=== PATIENT | male | born 1985 | race Caucasian/White ===

== ENCOUNTER 2023-11-26 19:17 | Emergency (ER) | payer SELFPAY ==
[~2023-11-26] VITALS: Ht 185.4 cm; Wt 104.3 kg
[2023-11-26] MEDS ORDERED: CEFTRIAXONE /D5W 50ML IVPB **ER PYXIS IV ONE (20:01)
[2023-11-26 20:03] LABS: BASOPHILS # (AUTO) 0.1 K/UL (0.0-0.2); BASOPHILS % (AUTO) 0.5 % (0.0-2.0); EOSINOPHILS % (AUTO) 0.3 % (0.0-7.0); HEMATOCRIT 47.7 % (36.7-47.1); HEMOGLOBIN 16.7 g/dL (12.5-16.3); LYMPHOCYTES # (AUTO) 1.6 K/uL (0.8-4.8); LYMPHOCYTES % (AUTO) 10.8 % (20.5-51.5); MEAN CORPUSCULAR HEMOGLOBIN 31.1 uug (23.8-33.4); MEAN CORPUSCULAR HGB CONC 35 g/dL (32.5-36.3); MONOCYTES # (AUTO) 1.4 K/uL (0.1-1.30); MONOCYTES % (AUTO) 9.6 % (0.0-11.0); NEUTROPHILS # (AUTO) 11.6 K/uL (1.8-8.9); NEUTROPHILS % (AUTO) 78.8 % (38.5-71.5); PLATELET COUNT (AUTO) 309 K/uL (152-348); RED BLOOD CELL COUNT(AUTO) 5.36 MIL/uL (4.06-5.63); RED CELL DISTRIBUTION WIDTH 13.3 % (12.1-16.2); WHITE BLOOD COUNT (AUTO) 14.7 K/uL (3.6-10.2)
[2023-11-26] MEDS ORDERED: DEXAMETHASONE SOD PHOSPHATE 10 MG INJ ONE (20:03)
[2023-11-26 20:05] LABS: DIFFERENTIAL COMMENT 1
[2023-11-26] MEDS: DEXAMETHASONE SOD PHOSPHATE 4 MG INJ IV ONE (20:05)
[2023-11-26] MEDS: CEFTRIAXONE 2 G in IV DEXTROSE 5% 100 ML IV ONE (20:05)
[2023-11-26 20:16] LABS: ALBUMIN 3.9 g/dL (3.4-5.0); BILIRUBIN,DIRECT 0.4 mg/dL (0.0-0.2); BILIRUBIN,TOTAL 1.4 mg/dL (0.2-1.0); CALCIUM 9.3 mg/dL (8.5-10.1); CREATININE 1.1 mg/dL (0.6-1.3); POTASSIUM 4.4 mmol/L (3.5-5.1); TOTAL PROTEIN, SERUM 8.4 g/dL (6.4-8.2)
[2023-11-26] MEDS: IV NORMAL SALINE 1000 ML BAG IV ONE (20:17)
[2023-11-26] MEDS ORDERED: IV NORMAL SALINE 250 ML IV ONE (20:59)
[2023-11-26] MEDS ORDERED: SWABABLE VALVE TRANSFER SET EA MC ONE (20:59)
[2023-11-26] MEDS ORDERED: IOHEXOL 300MG/ML 100 ML INFUS..BTL ONE (20:59)
[2023-11-26] MEDS: LIDOCAINE 2%-EPI 1:100,000 20 ML VIAL IJ ONE (22:56)
[2023-11-26] MEDS ORDERED: METRONIDAZOLE 500 MG/NS 100ML 200 ML IV ONE (23:32)
[2023-11-26] MEDS ORDERED: ONDANSETRON 4 MG/2 ML VIAL ONE (23:33)
[2023-11-26] MEDS: ONDANSETRON 4 MG/2 ML VIAL IV ONE (23:35)
[2023-11-26] MEDS: METRONIDAZOLE 500 MG/NS 100 ML PIGGYBACK IV ONE (23:35)
[2023-11-26] MEDS ORDERED: AMOX-430 PO (23:38)
[2023-11-26] MEDS ORDERED: METR-147 PO (23:38)
[2023-11-27] MEDS ORDERED: CHLO473M5 PO (02:32)
[2023-11-27 05:53] VITALS: BP 138/79; O2SAT 97
== END 2023-11-27 05:30 | disposition home or self-care (01) ==
LOC: ER 19:19
DX: J36 Peritonsillar abscess (principal); F17.200 Nicotine dependence, unspecified, uncomplicated; Z79.899 Other long term (current) drug therapy; Z88.1 Allergy status to other antibiotic agents
CPT/HCPCS: 36415; 70491; 83605; 85025; 87040; A4606; A4663; J0696; J1100; J2405; J3490; J7040; Q9967